=== PATIENT | female | born 1990 | race Asian ===

== ENCOUNTER 2020-12-31 10:30 | Day surgery (SDC) | payer BC, OTHER ==
[~2020-12-31] VITALS: Ht 167.6 cm; Wt 67.2 kg
[2020-12-31] MEDS ORDERED: no home meds per pt (11:06)
[2020-12-31] MEDS ORDERED: CHLORHEXIDINE 15 ML UDC ONE (11:10)
[2020-12-31 11:19] VITALS: BP 100/69
[2020-12-31] MEDS ORDERED: CHLORHEXIDINE 15 ML UDC PO ONE (11:30)
[2020-12-31] MEDS ORDERED: LACTATED RINGERS 1,000 ML IV SCH (11:30)
[2020-12-31 11:33] LABS: HCG UR SG 1.019 (1.003-1.030)
[2020-12-31] MEDS ORDERED: BUPIVACAINE/PF 0.5% ONE (12:20)
[2020-12-31] MEDS ORDERED: EPINEPHRINE 1 MG/ML, 1ML ONE (12:20)
[2020-12-31] MEDS ORDERED: MEPERIDINE/PF 25MG/0.5ML IVPush PRN (12:30)
[2020-12-31] MEDS ORDERED: PROMETHAZINE 25 MG/ML, 1ML IVPush PRN (12:30)
[2020-12-31] MEDS ORDERED: HALOPERIDOL 5 MG/ML IV PRN (12:30)
[2020-12-31] MEDS ORDERED: OXYcodone 5 MG/5 ML ORAL.SOL UDC PO PRN (12:30)
[2020-12-31] MEDS ORDERED: FENTANYL PF 100 MCG/2ML IV PRN (12:30)
[2020-12-31] MEDS ORDERED: ACETAMINOPHEN 325 MG TABLET PO PRN (12:30)
[2020-12-31] MEDS ORDERED: DIPHENHYDRAMINE 50 MG/ML, 1ML IVPush PRN (12:30)
[2020-12-31] MEDS ORDERED: hydrALAzine 20 MG/ML, 1ML IV PRN (12:30)
[2020-12-31] MEDS ORDERED: HYDROmorphone 1 MG/ML, 1ML INJ IVPush PRN (12:30)
[2020-12-31] MEDS ORDERED: LABETALOL 5MG/ML, 20ML IV PRN (12:30)
[2020-12-31] MEDS ORDERED: MIDAZOLAM 1 MG/ML, 2ML ONE (12:45)
[2020-12-31] MEDS ORDERED: FENTANYL PF 100 MCG/2ML ONE ×2 (12:45→13:47)
[2020-12-31] MEDS ORDERED: ROCURONIUM 10MG/ML,5ML ONE (14:02)
[2020-12-31] MEDS ORDERED: CEFAZOLIN 1,000 MG ONE (14:02)
[2020-12-31] MEDS ORDERED: SUCCINYLCHOLINE 20 MG/ML, 10ML ONE (14:02)
[2020-12-31] MEDS ORDERED: NEOSTIGMINE 1 MG/ML, 10ML ONE (14:02)
[2020-12-31] MEDS ORDERED: PROPOFOL 10 MG/ML, 20ML ONE (14:02)
[2020-12-31] MEDS ORDERED: ONDANSETRON 2MG/ML, 2ML ONE ×2 (14:02→14:03)
[2020-12-31] MEDS ORDERED: GLYCOPYRROLATE 0.2MG/1ML, 5ML ONE (14:02)
[2020-12-31] MEDS ORDERED: ACETAMINOPHEN 650 MG/20.3 ML UDC ONE (14:30)
[2020-12-31] MEDS ORDERED: OXYcodone 5 MG/5 ML ORAL.SOL UDC ONE (14:31)
[2020-12-31] MEDS ORDERED: PROMETHAZINE 25 MG/ML, 1ML ONE (14:58)
== END 2020-12-31 18:14 | disposition home or self-care (01) ==
LOC: OUT 10:30 → EDBD 12:00 → OUT 18:14
PROVIDERS: ATTEND Specialist
DX: J35.01 Chronic tonsillitis (principal); J03.91 Acute recurrent tonsillitis, unspecified; J35.8 Other chronic diseases of tonsils and adenoids
CPT/HCPCS: 42826; 81025; 88304; J0171; J0330; J2250; J2405; J2550; J2704; J3010; J7120; J0690; J2710